=== PATIENT | male | born 1945 | race Caucasian/White ===

== ENCOUNTER 2019-07-24 12:04 | Inpatient (IN) | payer MEDICARE ==
[~2019-07-24] VITALS: Ht 188 cm; Wt 135.2 kg
[~2019-07-24 12:04] MED LIST: LISI-613 PO
[2019-07-24] MEDS ORDERED: ONDANSETRON HCL 4 MG/2 ML VIAL ONE (12:21)
[2019-07-24] MEDS ORDERED: FENTANYL CITRATE PF 50 MCG/1 ML 2ML VIAL ONE (12:22)
[2019-07-24 12:53] LABS: BASOPHILS % (AUTO) 0.9 % (0.0-5.0); EOSINOPHILS % (AUTO) 0.6 % (0.0-8.0); HEMATOCRIT 34.5 % (42-54); LYMPHOCYTES % (AUTO) 15.6 % (21.0-51.0); MEAN CORPUSCULAR HEMOGLOBIN 28.4 pg (27.0-33.0); MEAN CORPUSCULAR HGB CONC 31.9 g/dL (32.0-36.0); MEAN CORPUSCULAR VOLUME 89.1 fL (79-99); MONOCYTES % (AUTO) 6.5 % (3.0-13.0); NEUTROPHILS % (AUTO) 75.3 % (40.0-77.0); PLATELET COUNT (AUTO) 218 K/uL (130-400); RED BLOOD CELL COUNT(AUTO) 3.87 MIL/uL (4.50-6.20); RED CELL DISTRIBUTION WIDTH 13.3 % (11.0-15.5); WHITE BLOOD COUNT (AUTO) 13.8 K/uL (4.8-10.8)
[2019-07-24 13:07] LABS: CREATININE 1.9 mg/dL (0.5-1.5); POTASSIUM 5.8 mmol/L (3.5-5.1)
[2019-07-24 13:08] LABS: INR 1.03 (0.85-1.15); PARTIAL THROMBOPLASTIN TIME 23.9 SEC (26.3-35.5); PROTHROMBIN TIME 11.1 SEC (9.6-11.6)
[2019-07-24 13:12] LABS: ALBUMIN 3.9 g/dL (3.5-5.0); BILIRUBIN,TOTAL 0.6 mg/dL (0.2-1.0); TOTAL PROTEIN, SERUM 7.2 g/dL (6.0-8.3)
[2019-07-24] MEDS ORDERED: HYDROMORPHONE 1 MG/1 ML AMP ONE (13:42)
[2019-07-24] MEDS: SODIUM CHLORIDE 0.9% 1000ML 1,000 ML IV SCH ×2 (16:56→23:08)
[2019-07-24] MEDS ORDERED: SODIUM POLYSTYRENE SULFONATE 15 GM/60 ML ML RC SCH (17:00)
[2019-07-24] MEDS ORDERED: ONDANSETRON HCL 4 MG/2 ML VIAL IV PRN (17:00)
[2019-07-24] MEDS ORDERED: ACETAMINOPHEN 325 MG TAB PO PRN (17:00)
[2019-07-24] MEDS ORDERED: NITROGLYCERIN 0.4 MG SL TAB SL PRN (17:00)
[2019-07-24] MEDS: CEFAZOLIN SODIUM 1 GM VIAL IVP SCH (17:00)
[2019-07-24] MEDS ORDERED: MORPHINE SULFATE 2 MG/ML 1ML SYG ONE ×2 (17:22→20:57)
[2019-07-24] MEDS ORDERED: SODIUM CHLORIDE 0.9% 100 ML IV ONE (17:51)
[2019-07-24] MEDS ORDERED: SODIUM POLYSTYRENE SULFONATE 15 GM/60 ML ML ONE (18:57)
[2019-07-24] MEDS ORDERED: FAMOTIDINE/PF 20 MG/2 ML VIAL IV SCH (21:00)
[2019-07-24] MEDS ORDERED: NALOXONE HCL 0.4 MG/1 ML ML IVP PRN (21:30)
[2019-07-24 22:35] VITALS: BP 95/47
[2019-07-24] MEDS: HYDROMORPHONE PCA 10 MG/50 ML 50 ML IV PRN (23:13)
[2019-07-24] MEDS ORDERED: LORA10TA60 PO (23:50)
--- NOTE | 2019-07-24 23:58 | NUR ---
NOTE APPLIED BUCKS TRACTION ON LLE. 10 LBS.
[2019-07-25] VITALS (7 sets, daily range): BP systolic 88–113; BP diastolic 44–52
[2019-07-25] MEDS: CEFAZOLIN SODIUM 1 GM VIAL IVP SCH ×2 (04:30→17:32)
[2019-07-25 04:38] LABS: BASOPHILS % (AUTO) 0.6 % (0.0-5.0); EOSINOPHILS % (AUTO) 0.5 % (0.0-8.0); HEMATOCRIT 31.4 % (42-54); LYMPHOCYTES % (AUTO) 15.4 % (21.0-51.0); MEAN CORPUSCULAR HEMOGLOBIN 28.7 pg (27.0-33.0); MEAN CORPUSCULAR HGB CONC 31.8 g/dL (32.0-36.0); MEAN CORPUSCULAR VOLUME 90.2 fL (79-99); MONOCYTES % (AUTO) 6.6 % (3.0-13.0); NEUTROPHILS % (AUTO) 76.3 % (40.0-77.0); PLATELET COUNT (AUTO) 192 K/uL (130-400); RED BLOOD CELL COUNT(AUTO) 3.48 MIL/uL (4.50-6.20); RED CELL DISTRIBUTION WIDTH 13.3 % (11.0-15.5); WHITE BLOOD COUNT (AUTO) 13.1 K/uL (4.8-10.8)
[2019-07-25 05:39] LABS: ALBUMIN 3.3 g/dL (3.5-5.0); BILIRUBIN,TOTAL 0.8 mg/dL (0.2-1.0); CREATININE 1.8 mg/dL (0.5-1.5); CRP QUANTITATIVE 20.9 mg/L (0.00-9.0); TOTAL PROTEIN, SERUM 6.3 g/dL (6.0-8.3)
[2019-07-25 05:43] LABS: POTASSIUM 6.2 mmol/L (3.5-5.1)
[2019-07-25 05:44] LABS: ERYTHROCYTE SEDIMENTATION RATE 38 MM/HR (0-20)
[2019-07-25] MEDS ORDERED: SODIUM POLYSTYRENE SULFONATE 15 GM/60 ML ML PO SCH (07:15)
[2019-07-25] MEDS ORDERED: GADODIAMIDE 10 MMOL/20 ML VIAL IV ONE (10:20)
--- NOTE | 2019-07-25 10:47 | NUR ---
PT DOWN FOR MRI LUMBAR, ORDERED BY DR FUENTES, PT UNABLE TO TOLERATE, DILAUDID GIVEN PRIOR TO EXAM, REFUSES MORPHINE, REFUSES TO TRY AGAIN, EXAM CANCELLED, DR FUENTES NOTIFIED WILL CONTINUE TO MONITOR
[2019-07-25 11:59] LABS: CREATININE 1.9 mg/dL (0.5-1.5); POTASSIUM 5.7 mmol/L (3.5-5.1)
[2019-07-25 12:04] LABS: ALBUMIN 3.4 g/dL (3.5-5.0); BILIRUBIN,TOTAL 0.8 mg/dL (0.2-1.0); TOTAL PROTEIN, SERUM 6.5 g/dL (6.0-8.3)
[2019-07-25] MEDS ORDERED: PAMIDRONATE DISODIUM IV SCH (13:00)
[2019-07-25] MEDS ORDERED: SODIUM CHLORIDE 0.9% IV SCH (13:00)
[2019-07-25] MEDS: SODIUM CHLORIDE 0.9% 1000ML 1,000 ML IV SCH (13:08)
[2019-07-25] MEDS: FAMOTIDINE/PF 20 MG/2 ML VIAL IV SCH (13:08)
[2019-07-25] MEDS: ENOXAPARIN SODIUM 30 MG/0.3 ML SQ SCH (13:08)
--- NOTE | 2019-07-25 13:27 | NUR ---
ELLEN BHAKTA SAID THAT FAMILY DAUGHTER LAURA BARRY HAD CALLED AND SAID THAT THEY WANTED DAD TO BE HOSPICE. ASKED ABOUT SPOUSE. SAID MOM HAS BEEN 6 YEARS. ASKED PRIMARY IF HE THOUGH HOSPICE WOULD BE APPROPRIATE BEFORE I CALL SAID WANTED TO WAIT FOR DR. CANCINO RECOMMENDATIONS. SINCE THERE COULD BE SOMETHING ON THE KIDNEY. LAURA BARRY DAUGHTER [phone] OR [phone]. WILL WAIT FOR DR. CANCINO REC'S. Addendum: 07/25/19 at 1332 by JAVAN THOMAS RN Amended: Links added.
[2019-07-25 23:51] LABS: APPEARANCE,URINE Clear (CLEAR); BILIRUBIN,URINE Negative (NEGATIVE); COLOR,URINE Yellow (YELLOW); GLUCOSE, URINE (UA) Negative (NEGATIVE); KETONES,URINE Negative (NEGATIVE); LEUKOCYTE ESTERASE ,URINE Negative (NEGATIVE); NITRATE,URINE Negative (NEGATIVE); OCCULT BLOOD,URINE Large (NEGATIVE); PH,URINE 5.5 (5.0-8.0); PROTEIN,URINE Negative (NEGATIVE)
[2019-07-25 23:56] LABS: CREATININE,URINE RANDOM 97 mg/dL (30-135); PROTEIN,URINE RANDOM 14.9 mg/dL (0-11.9)
[2019-07-26] VITALS (30 sets, daily range): BP systolic 96–122; BP diastolic 46–109
[2019-07-26 00:02] LABS: BACTERIA,URINE None Seen /HPF (None Seen); WBC,URINE None Seen /HPF (0-1)
[2019-07-26 04:57] LABS: BASOPHILS % (AUTO) 0.4 % (0.0-5.0); EOSINOPHILS % (AUTO) 0.6 % (0.0-8.0); HEMATOCRIT 29.4 % (42-54); LYMPHOCYTES % (AUTO) 13.4 % (21.0-51.0); MEAN CORPUSCULAR HEMOGLOBIN 28.4 pg (27.0-33.0); MEAN CORPUSCULAR VOLUME 88.8 fL (79-99); MONOCYTES % (AUTO) 7.2 % (3.0-13.0); NEUTROPHILS % (AUTO) 77.8 % (40.0-77.0); PLATELET COUNT (AUTO) 165 K/uL (130-400); RED BLOOD CELL COUNT(AUTO) 3.31 MIL/uL (4.50-6.20); RED CELL DISTRIBUTION WIDTH 13.4 % (11.0-15.5); WHITE BLOOD COUNT (AUTO) 11.7 K/uL (4.8-10.8)
[2019-07-26 05:15] LABS: ALBUMIN 2.9 g/dL (3.5-5.0); BILIRUBIN,TOTAL 0.8 mg/dL (0.2-1.0); CREATININE 1.6 mg/dL (0.5-1.5); POTASSIUM 4.9 mmol/L (3.5-5.1); TOTAL PROTEIN, SERUM 6.1 g/dL (6.0-8.3)
[2019-07-26 05:22] LABS: % IRON SATURATION 10.6 % (30-44)
[2019-07-26] MEDS: CEFAZOLIN SODIUM 1 GM VIAL IVP SCH ×2 (05:50→07:18)
[2019-07-26] MEDS: SODIUM CHLORIDE 0.9% 1000ML 1,000 ML IV SCH ×3 (05:51→12:34)
--- NOTE | 2019-07-26 06:34 | NUR ---
TO OR SURGERY STAFF HERE TO TRANSPORT PATIENT TO OR FOR BIOPSY.
[2019-07-26] MEDS ORDERED: FENTANYL CITRATE PF 50 MCG/1 ML 2ML VIAL ONE (07:08)
[2019-07-26] MEDS ORDERED: FENTANYL CITRATE PF 50 MCG/1 ML 2ML VIAL IVP SCH (07:30)
[2019-07-26] MEDS ORDERED: KETAMINE 50MG/ML SYRINGE 50 MG/ML DISP.SYRIN IV ONE (08:27)
[2019-07-26] MEDS ORDERED: LIDOCAINE PF 2% 5ML ABBOJECT ONE (08:29)
[2019-07-26] MEDS ORDERED: PROPOFOL 10 MG/ML 20ML VIAL IV ONE (08:29)
[2019-07-26] MEDS ORDERED: SUCCINYLCHOLINE CHLORIDE 20 MG/ML 10 ML VIAL ONE (08:29)
[2019-07-26] MEDS ORDERED: ROCURONIUM 10MG/1ML SYR 10 MG/ML ML ONE (08:29)
[2019-07-26] MEDS: ENOXAPARIN SODIUM 30 MG/0.3 ML SQ SCH (08:34)
[2019-07-26] MEDS: FAMOTIDINE/PF 20 MG/2 ML VIAL IV SCH (08:34)
[2019-07-26] MEDS ORDERED: CEFAZOLIN SODIUM 1 GM VIAL ONE ×2 (08:41→09:02)
[2019-07-26] MEDS ORDERED: ONDANSETRON HCL 4 MG/2 ML VIAL ONE (08:57)
[2019-07-26] MEDS ORDERED: COMPOUND IV MISC 1 EACH IVSOLN MISC PRN (09:00)
[2019-07-26] MEDS ORDERED: ALBUMIN (HUMAN) 5% 250 ML IV ONE ×2 (10:09→10:20)
[2019-07-26 10:35] LABS: HEMATOCRIT 27.2 % (42-54)
[2019-07-26] MEDS ORDERED: LIDOCAINE HCL-MPF 1% 2ML VIAL IV PRN (11:15)
[2019-07-26] MEDS ORDERED: POTASSIUM CHLORIDE 20MEQ/100ML 100 ML IV PRN (11:15)
[2019-07-26] MEDS ORDERED: POTASSIUM CHLORIDE 20 MEQ ERTAB PO PRN (11:15)
[2019-07-26] MEDS ORDERED: DIPHENHYDRAMINE HCL 25 MG CAPSULE PO PRN (11:15)
[2019-07-26] MEDS ORDERED: FERROUS FUMARATE 324 MG TABLET PO PRN (11:15)
[2019-07-26] MEDS ORDERED: POTASSIUM CHLORIDE 10% ELIXIR 20 MEQ/15 ML UDCUP PO PRN (11:15)
[2019-07-26] MEDS ORDERED: MEPERIDINE-PF 25 MG/ML SYG ONE (11:31)
--- NOTE | 2019-07-26 12:24 | NUR ---
S/P BONE BIOPSY PATIENT RETURNED TO FLOOR VIA HOSPITAL BED S/P BONE BIOPSY. HE IS MOANING ANG GRIMACING THROUGH HALLWAY. ONCE IN ROOM HE HAS BEEN QUIET AND APPEARS COMFORTABLE. HIS DRESSING IS DRY AND INTACT. IV FLUIDS CONTINUE VIA LEFT FOREARM IV WITH NO REDNESS OR SWELLING NOTED TO SITE. HE CONTINUES ON DILAUDID PENSION CONSULTANT. HE HAS BEEN REORIENTED TO ROOM AND USE OF CALL LIGHT. BED IS IN LOWEST POSITION AND LOCKED. POST OF V/S HAVE BEEN INITIATED. WILL CONTINUE TO MONITOR.
[2019-07-26] MEDS: IRON SUCROSE COMPLEX 100 MG in SODIUM CHLORIDE 0.9% 50 ML IV SCH (12:33)
[2019-07-26 16:04] LABS: HEMATOCRIT 24.3 % (42-54)
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
[2019-07-26] MEDS: MORPHINE SULFATE 2 MG/ML 1ML SYG IVP PRN (17:59)
[2019-07-27] VITALS: BP 117/58
[2019-07-27 04:58] VITALS: BP 114/81
[2019-07-27 05:14] LABS: BASOPHILS % (AUTO) 0.3 % (0.0-5.0); EOSINOPHILS % (AUTO) 0.2 % (0.0-8.0); HEMATOCRIT 24.2 % (42-54); LYMPHOCYTES % (AUTO) 11.7 % (21.0-51.0); MEAN CORPUSCULAR HEMOGLOBIN 28.4 pg (27.0-33.0); MEAN CORPUSCULAR HGB CONC 31.8 g/dL (32.0-36.0); MEAN CORPUSCULAR VOLUME 89.3 fL (79-99); NEUTROPHILS % (AUTO) 80.3 % (40.0-77.0); PLATELET COUNT (AUTO) 160 K/uL (130-400); RED BLOOD CELL COUNT(AUTO) 2.71 MIL/uL (4.50-6.20); RED CELL DISTRIBUTION WIDTH 13.5 % (11.0-15.5); WHITE BLOOD COUNT (AUTO) 12.9 K/uL (4.8-10.8)
[2019-07-27] MEDS: CEFAZOLIN SODIUM 1 GM VIAL IVP SCH ×2 (05:18→16:26)
[2019-07-27 05:32] LABS: ALBUMIN 2.9 g/dL (3.5-5.0); BILIRUBIN,TOTAL 0.9 mg/dL (0.2-1.0); CREATININE 1.3 mg/dL (0.5-1.5); POTASSIUM 4.7 mmol/L (3.5-5.1); TOTAL PROTEIN, SERUM 5.9 g/dL (6.0-8.3)
[2019-07-27] MEDS: SODIUM CHLORIDE 0.9% 1000ML 1,000 ML IV SCH (07:10)
[2019-07-27 08:01] VITALS: BP 104/53
[2019-07-27] MEDS: IRON SUCROSE COMPLEX 100 MG in SODIUM CHLORIDE 0.9% 50 ML IV SCH (09:19)
[2019-07-27] MEDS: FAMOTIDINE/PF 20 MG/2 ML VIAL IV SCH (09:19)
[2019-07-27] MEDS: ENOXAPARIN SODIUM 30 MG/0.3 ML SQ SCH (09:20)
[2019-07-27 11:42] VITALS: BP 103/53
[2019-07-27] MEDS ORDERED: FUROSEMIDE 10 MG/ML 2ML VIAL IV SCH (13:00)
[2019-07-27 16:02] VITALS: BP 95/43
[2019-07-27 20:00] VITALS: BP 112/58
[2019-07-27] MEDS: HEPARIN SODIUM 5000UNIT/ML 1ML VIAL SQ SCH (22:22)
[2019-07-28] VITALS (7 sets, daily range): BP systolic 105–128; BP diastolic 53–68
[2019-07-28] MEDS: HYDROCODONE/ACETAMINOPHEN 5/325 MG TAB PO PRN (01:43)
--- NOTE | 2019-07-28 01:46 | NUR ---
DAUGHTER VOICE MESSAGE LEFT ON DAUGHTER'S (LAURA: [phone]) CELL PHONE REQUESTING THAT SHE RETURN OUR CALL--PT. AGITATED, COMBATIVE, THROWING OWN CELL PHONE THAT HIT THE NURSE AND USING VULGAR LANGUAGE. SECURITY HERE TALKING TO PATIENT.
[2019-07-28] MEDS ORDERED: LORAZEPAM 2 MG/ML 1 ML VIAL ONE (02:08)
[2019-07-28] MEDS ORDERED: LORAZEPAM 2 MG/ML 1 ML VIAL IVP ONE (02:15)
[2019-07-28] MEDS: CEFAZOLIN SODIUM 1 GM VIAL IVP SCH ×2 (04:26→17:39)
[2019-07-28 05:08] LABS: HEMATOCRIT 28.2 % (42-54); MEAN CORPUSCULAR HEMOGLOBIN 29.4 pg (27.0-33.0); MEAN CORPUSCULAR VOLUME 89.2 fL (79-99); PLATELET COUNT (AUTO) 165 K/uL (130-400); RED BLOOD CELL COUNT(AUTO) 3.16 MIL/uL (4.50-6.20); RED CELL DISTRIBUTION WIDTH 13.2 % (11.0-15.5); WHITE BLOOD COUNT (AUTO) 11.6 K/uL (4.8-10.8)
[2019-07-28 05:23] LABS: BAND NEUTROPHILS % (MANUAL) 2 % (0-2); EOSINOPHILS % (MANUAL) 1 % (1-6); LYMPHOCYTES % (MANUAL) 15 % (22-44); MAN.DIFF COMMENT-IMPRESSION MANUAL DIFFERENTIAL; MONOCYTES % (MANUAL) 8 % (2-9); PLATELET MORPHOLOGY COMMENT ADEQUATE; SEGMENTED NEUTROPHILS % 74 % (40-70)
[2019-07-28 05:26] LABS: CREATININE 1.1 mg/dL (0.5-1.5); PHOSPHORUS 2.9 mg/dL (2.5-4.9); POTASSIUM 4.4 mmol/L (3.5-5.1)
[2019-07-28] MEDS: FAMOTIDINE/PF 20 MG/2 ML VIAL IV SCH (08:57)
[2019-07-28] MEDS: IRON SUCROSE COMPLEX 100 MG in SODIUM CHLORIDE 0.9% 50 ML IV SCH (08:59)
[2019-07-28] MEDS: HEPARIN SODIUM 5000UNIT/ML 1ML VIAL SQ SCH ×2 (08:59→20:45)
--- NOTE | 2019-07-28 19:24 | NUR ---
PATIENT AWAKE, ALERT AND ORIENTED. HE SIGN THE CONSENT FOR THE PROCEDURE TOMORROW, STATES HE UNDERSTANDS THE RISKS AND WISHES TO CONTINUE WITH THE PLAN. PATIENT ALSO MENTIONED THAT HE WANTED TO BE DNR. I TOLD HIM THAT HE WILL NEED TO SIGN A SPECIFIC FORM. ETIENNE GRULLON AWARE.
[2019-07-28] MEDS: HYDROMORPHONE 1 MG/1 ML AMP IVP PRN ×2 (21:14→23:12)
[2019-07-29] MEDS: HYDROMORPHONE 1 MG/1 ML AMP IVP PRN ×4 (01:15→08:41)
[2019-07-29] MEDS: MORPHINE SULFATE 2 MG/ML 1ML SYG IVP PRN (02:28)
[2019-07-29 03:46] VITALS: BP 121/74
[2019-07-29] MEDS: CEFAZOLIN SODIUM 1 GM VIAL IVP SCH ×2 (04:40→17:18)
[2019-07-29 05:56] LABS: HEMATOCRIT 29.3 % (42-54); MEAN CORPUSCULAR HGB CONC 32.4 g/dL (32.0-36.0); MEAN CORPUSCULAR VOLUME 89.3 fL (79-99); RED BLOOD CELL COUNT(AUTO) 3.28 MIL/uL (4.50-6.20); RED CELL DISTRIBUTION WIDTH 13.9 % (11.0-15.5); WHITE BLOOD COUNT (AUTO) 9.4 K/uL (4.8-10.8)
[2019-07-29] MEDS: SODIUM CHLORIDE 0.9% 1000ML 1,000 ML IV SCH ×3 (06:08→23:51)
[2019-07-29 06:17] LABS: CREATININE 1.2 mg/dL (0.5-1.5); POTASSIUM 4.3 mmol/L (3.5-5.1)
[2019-07-29 08:00] VITALS: BP 121/62
[2019-07-29] MEDS: FAMOTIDINE/PF 20 MG/2 ML VIAL IV SCH (08:41)
[2019-07-29] MEDS: HYDROMORPHONE PCA 10 MG/50 ML 50 ML IV PRN (08:42)
[2019-07-29] MEDS: HEPARIN SODIUM 5000UNIT/ML 1ML VIAL SQ SCH ×2 (09:00→19:50)
[2019-07-29] MEDS: IRON SUCROSE COMPLEX 100 MG in SODIUM CHLORIDE 0.9% 50 ML IV SCH (09:44)
[2019-07-29 12:01] VITALS: BP 113/55
[2019-07-29] MEDS ORDERED: IOHEXOL 350 MG/ML 100ML INFUS..BTL IV ONE (13:46)
[2019-07-29 16:00] VITALS: BP 119/62
[2019-07-29 20:20] VITALS: BP 121/58
[2019-07-30 00:24] VITALS: BP 121/63
[2019-07-30 04:24] VITALS: BP 105/62
[2019-07-30] MEDS: CEFAZOLIN SODIUM 1 GM VIAL IVP SCH ×2 (04:45→16:30)
[2019-07-30 08:00] VITALS: BP 134/67
--- NOTE | 2019-07-30 08:10 | NUR ---
ORTHOPEDIC MD DR. FUENTES IN TO SEE PATIENT. NEW ORDERS RECEIVED AND CARRIED OUT.
[2019-07-30] MEDS: FAMOTIDINE/PF 20 MG/2 ML VIAL IV SCH (08:34)
[2019-07-30] MEDS: HEPARIN SODIUM 5000UNIT/ML 1ML VIAL SQ SCH ×3 (08:35→21:04)
[2019-07-30] MEDS: IRON SUCROSE COMPLEX 100 MG in SODIUM CHLORIDE 0.9% 50 ML IV SCH (08:36)
[2019-07-30] MEDS: SODIUM CHLORIDE 0.9% 1000ML 1,000 ML IV SCH (10:30)
[2019-07-30] MEDS ORDERED: LIDOCAINE HCL 1% MDV 50ML VIAL ONE (11:20)
[2019-07-30] MEDS ORDERED: HEPARIN SODIUM 1000UNIT/ML 10ML VIAL ONE (11:20)
[2019-07-30] MEDS ORDERED: FENTANYL CITRATE PF 50 MCG/1 ML 2ML VIAL ONE (11:20)
[2019-07-30] MEDS ORDERED: MIDAZOLAM HCL 1 MG/ML 2ML VIAL ONE (11:20)
[2019-07-30] MEDS ORDERED: IODIXANOL 320 MG/ML 100 ML VIAL ONE (11:21)
--- NOTE | 2019-07-30 11:49 | NUR ---
DC PLAN PATIENT PENDING SURGERY BY DR. FUENTES AND THEN POSSIBLE CHEMO BY DR. CANCINO. ONCE PATIENT HAS SURGERY WILL HAVE PT EVAL. DEPENDING ON PT EVAL POSSIBLE SNF VS HOME. Addendum: 07/30/19 at 1151 by JAVAN THOMAS RN CM Amended: Links added.
--- NOTE | 2019-07-30 11:50 | NUR ---
TO PHOTOGRAPHIC ENGINEER PATIENT TRANSFERRED TO PHOTOGRAPHIC ENGINEER FOR TUMOR EMBOLIZATION BY INTERVENTIONAL RADIOLOGIST. HE IS IN STABLE CONDITION. [address] LBS[address] KAUFMAN'S TRACTION IN PLACE.
[2019-07-30 11:51] VITALS: BP 144/68
--- NOTE | 2019-07-30 12:53 | NUR ---
BACK FROM ENDOCRINOLOGY NURSE PATIENT WAS RETURNED FROM ENDOCRINOLOGY NURSE WITHOUT PROCEDURE BEING DONE D/T TOO MUCH PAIN. THE RADIOLOGIST HAS SPOKEN WITH DR. FUENTES REGARDING THIS AND THEY WILL POSTPONE PROCEDURE UNTIL TOMORROW WHEN THEY CAN USE GENERAL ANESTHESIA.
--- NOTE | 2019-07-30 15:53 | NUR ---
DC PLAN DAUGHTER CALLED SAID PATIENT HAD BEEN CONFUSED. PLAN TO GO TO COMFORT HOME ON DISCHARGE NOT HOSPICE. NAME OF HOME IS [facility]. [phone]. NOT SURE ON NAME OF PERSON TO CONTACT. SAID THAT PLAN IS STILL FOR SURGERY WITH DR. FUENTES. CALLED TO LET NURSE KNOW NO ANSWER. CM WILL CONTINUE TO FOLLOW. Addendum: 07/30/19 at 1555 by JAVAN THOMAS RN CM Amended: Links added.
[2019-07-30 16:00] VITALS: BP 125/62
[2019-07-30 19:00] VITALS: BP 118/63
[2019-07-31] VITALS (25 sets, daily range): BP systolic 99–122; BP diastolic 46–72
[2019-07-31] MEDS: HYDROMORPHONE PCA 10 MG/50 ML 50 ML IV PRN ×3 (01:30→06:35)
[2019-07-31] MEDS: HYDROCODONE/ACETAMINOPHEN 5/325 MG TAB PO PRN ×2 (02:48→21:11)
[2019-07-31] MEDS: SODIUM CHLORIDE 0.9% 1000ML 1,000 ML IV SCH ×3 (02:49→16:15)
[2019-07-31] MEDS: CEFAZOLIN SODIUM 1 GM VIAL IVP SCH ×2 (05:01→17:26)
[2019-07-31] MEDS: HEPARIN SODIUM 5000UNIT/ML 1ML VIAL SQ SCH ×2 (09:00→21:12)
[2019-07-31] MEDS: FAMOTIDINE/PF 20 MG/2 ML VIAL IV SCH (09:51)
[2019-07-31] MEDS ORDERED: NEOSTIGMINE 5MG/5ML SYR IV ONE (12:08)
[2019-07-31] MEDS ORDERED: MIDAZOLAM HCL 1 MG/ML 2ML VIAL ONE (12:08)
[2019-07-31] MEDS ORDERED: PROPOFOL 10 MG/ML 20ML VIAL IV ONE (12:08)
[2019-07-31] MEDS ORDERED: GLYCOPYRROLATE 1 MG/5 ML SYRINGE ONE (12:08)
[2019-07-31] MEDS ORDERED: LIDOCAINE PF 2% 5ML ABBOJECT ONE (12:08)
[2019-07-31] MEDS ORDERED: DEXAMETHASONE SOD PHOSPHATE 10MG/ML 1ML VIAL ONE (12:08)
[2019-07-31] MEDS ORDERED: ONDANSETRON HCL 4 MG/2 ML VIAL ONE (12:09)
[2019-07-31] MEDS ORDERED: ROCURONIUM 10MG/1ML SYR 10 MG/ML ML ONE (12:09)
[2019-07-31] MEDS ORDERED: EPHEDRINE SULFATE 50 MG/ML AMPULE ONE (12:11)
[2019-07-31] MEDS ORDERED: NALOXONE HCL 0.4 MG/1 ML ML ONE (12:42)
[2019-07-31] MEDS ORDERED: FENTANYL CITRATE PF 50 MCG/1 ML 5ML AMP IV ONE (13:27)
[2019-07-31] MEDS ORDERED: IODIXANOL 320 MG/ML 100 ML VIAL ONE ×3 (14:34→15:17)
[2019-07-31] MEDS ORDERED: LIDOCAINE HCL 1% MDV 50ML VIAL ONE (14:52)
[2019-07-31] MEDS: IRON SUCROSE COMPLEX 100 MG in SODIUM CHLORIDE 0.9% 50 ML IV SCH (17:27)
[2019-07-31] MEDS: HYDROMORPHONE 1 MG/1 ML AMP IVP PRN (19:24)
[2019-08-01] VITALS (7 sets, daily range): BP systolic 92–110; BP diastolic 48–62
[2019-08-01] MEDS: CEFAZOLIN SODIUM 1 GM VIAL IVP SCH ×2 (04:38→17:17)
[2019-08-01] MEDS: HYDROMORPHONE 1 MG/1 ML AMP IVP PRN (04:38)
[2019-08-01] MEDS: HYDROCODONE/ACETAMINOPHEN 5/325 MG TAB PO PRN ×2 (05:52→16:32)
[2019-08-01] MEDS: SODIUM CHLORIDE 0.9% 1000ML 1,000 ML IV SCH ×2 (05:53→12:17)
[2019-08-01 05:57] LABS: BASOPHILS % (AUTO) 0.1 % (0.0-5.0); HEMATOCRIT 28.9 % (42-54); LYMPHOCYTES % (AUTO) 8.4 % (21.0-51.0); MEAN CORPUSCULAR HEMOGLOBIN 28.7 pg (27.0-33.0); MEAN CORPUSCULAR HGB CONC 30.8 g/dL (32.0-36.0); MEAN CORPUSCULAR VOLUME 93.2 fL (79-99); MONOCYTES % (AUTO) 6.4 % (3.0-13.0); NEUTROPHILS % (AUTO) 84.7 % (40.0-77.0); PLATELET COUNT (AUTO) 184 K/uL (130-400); RED CELL DISTRIBUTION WIDTH 14.1 % (11.0-15.5); WHITE BLOOD COUNT (AUTO) 6.8 K/uL (4.8-10.8)
[2019-08-01 06:14] LABS: CREATININE 1.1 mg/dL (0.5-1.5)
[2019-08-01] MEDS: FAMOTIDINE/PF 20 MG/2 ML VIAL IV SCH (09:14)
[2019-08-01] MEDS: IRON SUCROSE COMPLEX 100 MG in SODIUM CHLORIDE 0.9% 50 ML IV SCH (09:14)
[2019-08-01] MEDS ORDERED: MIDODRINE HCL 5 MG TABLET PO SCH (09:15)
[2019-08-01] MEDS: HEPARIN SODIUM 5000UNIT/ML 1ML VIAL SQ SCH ×2 (09:22→20:46)
[2019-08-01] MEDS: LACTULOSE 20 GM/30 ML UDCUP PO PRN (10:04)
[2019-08-01] MEDS ORDERED: SENNOSIDES 8.6 MG TABLET PO PRN (14:15)
[2019-08-01] MEDS: MIDODRINE HCL 5 MG TABLET PO SCH ×2 (14:37→20:46)
--- NOTE | 2019-08-01 16:28 | NUR ---
RDSCREEN - LOS X 8 Pt admitted s/p fall, left hip fracture. Pt with metastatic Renal Cell carcinoma, as per EMR. Pt Heart healthy Diet order held pending surgical procedure. Pt with intermittent NPO status since admit. No reported weight loss. S/p embolization procedure, as per EMR. LBM 08/01/19. Recommend resume Heart Healthy diet order post procedure, when medically feasible. Recommend add Ensure QD post procedure, when medically feasible. RD to continue to monitor. Please notify as additional nutrition concerns arise. Thank you. Addendum: 08/01/19 at [address] Amended: Links added.
[2019-08-01] MEDS ORDERED: CEFAZOLIN SODIUM 1 GM VIAL IVP PRN (17:45)
--- NOTE | 2019-08-01 19:00 | NUR ---
MD ANNE CEJA VISITED WITH PATIENT. POC DISCUSSED. NEW ORDERS RECEIVED AND CARRIED OUT. PATIENT AWARE. Addendum: 08/02/19 at 0148 by ALEXANDRA ALONSO RN RN Amended: Links added.
--- NOTE | 2019-08-01 19:18 | NUR ---
DR. ALFREDO LEAL HERE TO SEE PATIENT. SPOKE TO PATIENT AND HIS DAUGHTER IN REGARDS TO PLAN FOR SURGERY TOMORROW.
[2019-08-02] VITALS (25 sets, daily range): BP systolic 92–123; BP diastolic 43–61
[2019-08-02] MEDS: CEFAZOLIN SODIUM 1 GM VIAL IVP SCH ×2 (03:55→17:00)
[2019-08-02] MEDS: SODIUM CHLORIDE 0.9% 1000ML 1,000 ML IV SCH ×2 (03:57→21:13)
[2019-08-02 04:48] LABS: BASOPHILS % (AUTO) 0.4 % (0.0-5.0); EOSINOPHILS % (AUTO) 0.4 % (0.0-8.0); HEMATOCRIT 30.3 % (42-54); LYMPHOCYTES % (AUTO) 15.7 % (21.0-51.0); MEAN CORPUSCULAR VOLUME 93.5 fL (79-99); MONOCYTES % (AUTO) 7.2 % (3.0-13.0); NEUTROPHILS % (AUTO) 75.7 % (40.0-77.0); PLATELET COUNT (AUTO) 207 K/uL (130-400); RED BLOOD CELL COUNT(AUTO) 3.24 MIL/uL (4.50-6.20); RED CELL DISTRIBUTION WIDTH 14.3 % (11.0-15.5); WHITE BLOOD COUNT (AUTO) 7.8 K/uL (4.8-10.8)
[2019-08-02 05:03] LABS: ALBUMIN 2.3 g/dL (3.5-5.0); BILIRUBIN,TOTAL 0.9 mg/dL (0.2-1.0); POTASSIUM 4.2 mmol/L (3.5-5.1); TOTAL PROTEIN, SERUM 5.5 g/dL (6.0-8.3)
[2019-08-02] MEDS: HYDROMORPHONE 1 MG/1 ML AMP IVP PRN (07:36)
[2019-08-02] MEDS: IRON SUCROSE COMPLEX 100 MG in SODIUM CHLORIDE 0.9% 50 ML IV SCH (09:00)
[2019-08-02] MEDS: DOCUSATE SODIUM 100 MG CAP PO SCH (09:00)
[2019-08-02] MEDS: MIDODRINE HCL 5 MG TABLET PO SCH ×3 (09:12→21:12)
[2019-08-02] MEDS: FAMOTIDINE/PF 20 MG/2 ML VIAL IV SCH (09:12)
[2019-08-02] MEDS ORDERED: ROPIVACAINE 0.5% 5MG/ML 30ML IJ ONE (10:31)
[2019-08-02] MEDS ORDERED: SUCCINYLCHOLINE CHLORIDE 20 MG/ML 10 ML VIAL ONE (10:31)
[2019-08-02] MEDS ORDERED: FENTANYL CITRATE PF 50 MCG/1 ML 2ML VIAL ONE ×2 (10:34→17:13)
[2019-08-02] MEDS ORDERED: PROPOFOL 10 MG/ML 20ML VIAL IV ONE (10:34)
[2019-08-02] MEDS ORDERED: LIDOCAINE PF 2% 5ML ABBOJECT ONE (10:34)
[2019-08-02] MEDS ORDERED: ROCURONIUM 10MG/1ML SYR 10 MG/ML ML ONE ×3 (10:34→15:28)
[2019-08-02] MEDS ORDERED: CEFAZOLIN SODIUM 1 GM VIAL ONE ×3 (11:24→17:02)
[2019-08-02] MEDS: HYDROMORPHONE PCA 10 MG/50 ML 50 ML IV PRN (11:46)
--- NOTE | 2019-08-02 11:46 | NUR ---
I RECEIVED A CALL FROM SURGERY HOLDING AREA THAT PT'S SYSTEMS ARCHITECTURE ANALYST HAS RUN OUT AND THAT THEY NEED A REFILL; I HAVE GONE DOWN TO SURGERY AND REFILLED THE SYSTEMS ARCHITECTURE ANALYST AND HAD JAZZ A WITNESS.
[2019-08-02] MEDS ORDERED: EPHEDRINE SULFATE 50 MG/ML AMPULE ONE ×2 (12:14→17:31)
[2019-08-02] MEDS ORDERED: PHENYLEPHRINE HCL 10 MG/ML 1ML VIAL IV ONE (14:34)
[2019-08-02] MEDS ORDERED: GLYCOPYRROLATE 1 MG/5 ML SYRINGE ONE (16:35)
[2019-08-02] MEDS ORDERED: NEOSTIGMINE 5MG/5ML SYR IV ONE (16:35)
[2019-08-02] MEDS: CEFAZOLIN SODIUM 1 GM VIAL ONE ×2 (17:00→17:40)
[2019-08-02] MEDS ORDERED: ONDANSETRON HCL 4 MG/2 ML VIAL ONE (17:08)
[2019-08-02] MEDS ORDERED: SODIUM CHLORIDE 0.9% 1000ML 1,000 ML IV SCH (17:42)
[2019-08-02] MEDS ORDERED: POTASSIUM CHLORIDE 10% ELIXIR 20 MEQ/15 ML UDCUP PO PRN (17:45)
[2019-08-02] MEDS ORDERED: LIDOCAINE HCL-MPF 1% 2ML VIAL IV PRN (17:45)
[2019-08-02] MEDS: ACETAMINOPHEN EXTRA STRENGTH 500 MG TABLET PO SCH ×2 (17:45→21:13)
[2019-08-02] MEDS ORDERED: POTASSIUM CHLORIDE 20MEQ/100ML 100 ML IV PRN (17:45)
[2019-08-02] MEDS ORDERED: POTASSIUM CHLORIDE 20 MEQ ERTAB PO PRN (17:45)
[2019-08-02] MEDS ORDERED: MEPERIDINE-PF 25 MG/ML SYG ONE ×2 (18:04→18:15)
--- NOTE | 2019-08-02 18:50 | NUR ---
RECEIVED PT POST OP, HE IS MOANING AT TIMES SLIGHTLY BUT THEN FALLS BACK TO SLEEP; I HAVE CHECKED TOOL AND DIE REPAIR AND DRESSING CDI WITH HV DRAIN IN PLACE
--- NOTE | 2019-08-02 23:29 | NUR ---
Pt Avg Ins Vol is 1750 ML. Pt achieved 2000 ML. After 3 breath attempts he refused to continue due to pain. Addendum: 08/02/19 at 2331 by SMITA [address]OWER RT Amended: Links added.
[2019-08-03 00:35] VITALS: BP 104/50
[2019-08-03 04:00] VITALS: BP 107/49
[2019-08-03] MEDS: SODIUM CHLORIDE 0.9% 1000ML 1,000 ML IV SCH ×2 (04:38→14:15)
[2019-08-03] MEDS: CEFAZOLIN SODIUM 1 GM VIAL IVP SCH (04:39)
[2019-08-03 05:23] LABS: HEMATOCRIT 25.6 % (42-54); MEAN CORPUSCULAR HEMOGLOBIN 28.9 pg (27.0-33.0); MEAN CORPUSCULAR VOLUME 90.1 fL (79-99); NUCLEATED RED BLOOD CELLS 0.2 % (0.0-0.19); RED BLOOD CELL COUNT(AUTO) 2.84 MIL/uL (4.50-6.20); RED CELL DISTRIBUTION WIDTH 14.8 % (11.0-15.5); WHITE BLOOD COUNT (AUTO) 11.1 K/uL (4.8-10.8)
[2019-08-03 05:38] LABS: POTASSIUM 4.9 mmol/L (3.5-5.1)
[2019-08-03 06:59] LABS: CREATININE 1.2 mg/dL (0.5-1.5)
[2019-08-03 08:00] VITALS: BP 122/49
[2019-08-03] MEDS: ACETAMINOPHEN EXTRA STRENGTH 500 MG TABLET PO SCH ×2 (10:11→18:33)
[2019-08-03] MEDS: FAMOTIDINE/PF 20 MG/2 ML VIAL IV SCH (10:11)
[2019-08-03] MEDS: DOCUSATE SODIUM 100 MG CAP PO SCH (10:11)
[2019-08-03] MEDS: MIDODRINE HCL 5 MG TABLET PO SCH ×3 (10:12→21:07)
[2019-08-03] MEDS: APIXABAN 2.5 MG TABLET PO SCH ×2 (10:12→21:07)
[2019-08-03] MEDS: IRON SUCROSE COMPLEX 100 MG in SODIUM CHLORIDE 0.9% 50 ML IV SCH (10:14)
[2019-08-03 11:00] VITALS: BP 114/50
[2019-08-03] MEDS: HYDROCODONE/ACETAMINOPHEN 5/325 MG TAB PO PRN (12:02)
--- NOTE | 2019-08-03 16:21 | NUR ---
CM NOTE spoke to LAURA DAUGHTER [phone], spoke to her regarding poss snf for rehab, states that her preference is that pt go to [facility]. [phone]. she states this facility is an assisted living and has a PT department, informed that this cm nbt familiar with this home, and have tried to call it but only voicemessage this weekend. cm tocontinue to followup with this facility and for PT and MD recommendations. she verbalizes understanding.
[2019-08-03 17:16] VITALS: BP 120/57
[2019-08-03 20:16] VITALS: BP 137/63
[2019-08-03] MEDS: HYDROMORPHONE PCA 10 MG/50 ML 50 ML IV PRN (21:08)
[2019-08-04] MEDS: SODIUM CHLORIDE 0.9% 1000ML 1,000 ML IV SCH ×3 (01:00→20:57)
[2019-08-04] MEDS: HYDROCODONE/ACETAMINOPHEN 5/325 MG TAB PO PRN ×2 (01:01→05:14)
[2019-08-04] MEDS: ACETAMINOPHEN EXTRA STRENGTH 500 MG TABLET PO SCH ×3 (01:45→18:41)
[2019-08-04] MEDS ORDERED: LORAZEPAM 2 MG TABLET PO PRN (06:00)
[2019-08-04 08:00] VITALS: BP 115/59
[2019-08-04] MEDS: FAMOTIDINE/PF 20 MG/2 ML VIAL IV SCH (08:04)
[2019-08-04] MEDS: HYDROMORPHONE 1 MG/1 ML AMP IVP PRN (08:05)
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
[2019-08-04 08:57] LABS: BASOPHILS % (AUTO) 0.2 % (0.0-5.0); EOSINOPHILS % (AUTO) 0.4 % (0.0-8.0); LYMPHOCYTES % (AUTO) 7.9 % (21.0-51.0); MEAN CORPUSCULAR HEMOGLOBIN 29.2 pg (27.0-33.0); MEAN CORPUSCULAR HGB CONC 32.5 g/dL (32.0-36.0); MEAN CORPUSCULAR VOLUME 89.9 fL (79-99); MONOCYTES % (AUTO) 5.3 % (3.0-13.0); NEUTROPHILS % (AUTO) 84.4 % (40.0-77.0); NUCLEATED RED BLOOD CELLS 0.3 % (0.0-0.19); PLATELET COUNT (AUTO) 170 K/uL (130-400); RED BLOOD CELL COUNT(AUTO) 2.67 MIL/uL (4.50-6.20); RED CELL DISTRIBUTION WIDTH 15.5 % (11.0-15.5); WHITE BLOOD COUNT (AUTO) 12.6 K/uL (4.8-10.8)
--- NOTE | 2019-08-04 09:00 | NUR ---
cm note spoke to dr thorne regarding dc planning informed that daughter does not wish snf due to wishes to see him and spend time with him. and that at snf will not be able to. states if family prefers [facility] comfort home, options for hh, vs hospice, but dr polanco would need to advise, he has discussed this issue with dr polanco in the past. also spoke to dr Juan rosado, states she will discuss with dr Polanco and let cm know and then will discuss with pt and family.
[2019-08-04 09:12] LABS: CREATININE 0.9 mg/dL (0.5-1.5); POTASSIUM 4.1 mmol/L (3.5-5.1)
[2019-08-04] MEDS: DOCUSATE SODIUM 100 MG CAP PO SCH (10:21)
[2019-08-04] MEDS: IRON SUCROSE COMPLEX 100 MG in SODIUM CHLORIDE 0.9% 50 ML IV SCH (10:21)
[2019-08-04] MEDS: APIXABAN 2.5 MG TABLET PO SCH ×2 (10:21→20:57)
[2019-08-04] MEDS: MIDODRINE HCL 5 MG TABLET PO SCH ×3 (10:24→20:57)
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
[2019-08-04 12:00] VITALS: BP 115/55
[2019-08-04] MEDS: CALCIUM CARBONATE 500 MG TABLET PO PRN (13:17)
[2019-08-04] MEDS ORDERED: SODIUM CHLORIDE 0.9% 250 ML IV ONE (13:42)
[2019-08-04 15:58] VITALS: BP 109/51
[2019-08-04 19:00] VITALS: BP 117/62
[2019-08-04] MEDS: MIRTAZAPINE 15 MG TABLET PO SCH (20:57)
[2019-08-04] MEDS: DULOXETINE HCL 30 MG CAP PO SCH (20:57)
[2019-08-04 23:49] VITALS: BP 136/70
[2019-08-05 04:00] VITALS: BP 120/57
[2019-08-05] MEDS: ACETAMINOPHEN EXTRA STRENGTH 500 MG TABLET PO SCH ×3 (04:54→17:17)
[2019-08-05] MEDS: SODIUM CHLORIDE 0.9% 1000ML 1,000 ML IV SCH ×2 (04:55→16:16)
[2019-08-05 05:11] LABS: BASOPHILS % (AUTO) 0.2 % (0.0-5.0); EOSINOPHILS % (AUTO) 1.2 % (0.0-8.0); HEMATOCRIT 25.9 % (42-54); LYMPHOCYTES % (AUTO) 11.3 % (21.0-51.0); MEAN CORPUSCULAR HEMOGLOBIN 29.1 pg (27.0-33.0); MEAN CORPUSCULAR VOLUME 90.9 fL (79-99); MONOCYTES % (AUTO) 5.9 % (3.0-13.0); NEUTROPHILS % (AUTO) 79.7 % (40.0-77.0); NUCLEATED RED BLOOD CELLS 0.2 % (0.0-0.19); PLATELET COUNT (AUTO) 168 K/uL (130-400); RED BLOOD CELL COUNT(AUTO) 2.85 MIL/uL (4.50-6.20); RED CELL DISTRIBUTION WIDTH 16.2 % (11.0-15.5); WHITE BLOOD COUNT (AUTO) 12.3 K/uL (4.8-10.8)
[2019-08-05 05:29] LABS: CREATININE 0.8 mg/dL (0.5-1.5); POTASSIUM 4.1 mmol/L (3.5-5.1)
[2019-08-05 08:00] VITALS: BP 126/65
[2019-08-05] MEDS: DULOXETINE HCL 30 MG CAP PO SCH ×2 (09:03→21:44)
[2019-08-05] MEDS: MIDODRINE HCL 5 MG TABLET PO SCH ×3 (09:03→21:44)
[2019-08-05] MEDS: APIXABAN 2.5 MG TABLET PO SCH ×2 (09:03→21:44)
[2019-08-05] MEDS: FAMOTIDINE/PF 20 MG/2 ML VIAL IV SCH (09:03)
[2019-08-05] MEDS: DOCUSATE SODIUM 100 MG CAP PO SCH (09:04)
--- NOTE | 2019-08-05 09:16 | NUR ---
MD ROUNDS DR FUENTES VISITED WITH PATIENT. POC DISCUSSED. ORDERS TO START THE TRANSITION FROM DILAUDID HYDROGENATION STILL OPERATOR TO PO PAIN MEDICATIONS.
[2019-08-05] MEDS ORDERED: TRAMADOL HCL 50 MG TABLET PO PRN (09:45)
[2019-08-05] MEDS ORDERED: OXYCODONE HCL 5 MG TAB PO PRN (09:45)
--- NOTE | 2019-08-05 11:22 | NUR ---
[facility]ER. NO ANSWERING MACHINE. CM WILL CONTINUE TO TRY. COULD BE DUE TO HOLIDAY. PATIENT STILL ON PILEDRIVER CARPENTER PAIN PUMP AT THIS TIME. Addendum: 08/05/19 at 1124 by JAVAN THOMAS RN CM Amended: Links added.
[2019-08-05 11:44] VITALS: BP 146/72
[2019-08-05] MEDS: HYDROMORPHONE PCA 10 MG/50 ML 50 ML IV PRN (13:28)
[2019-08-05 16:00] VITALS: BP 131/73
[2019-08-05] MEDS ORDERED: BISACODYL 10 MG SUPP.RECT RC PRN (17:45)
[2019-08-05 21:39] VITALS: BP 124/65
[2019-08-05] MEDS: MIRTAZAPINE 15 MG TABLET PO SCH (21:44)
[2019-08-05 23:39] VITALS: BP 139/68
[2019-08-06] MEDS: ACETAMINOPHEN EXTRA STRENGTH 500 MG TABLET PO SCH ×3 (01:45→17:16)
[2019-08-06 04:05] VITALS: BP 130/64
[2019-08-06 05:13] LABS: HEMATOCRIT 25.7 % (42-54); MEAN CORPUSCULAR HEMOGLOBIN 29.4 pg (27.0-33.0); MEAN CORPUSCULAR HGB CONC 32.7 g/dL (32.0-36.0); MEAN CORPUSCULAR VOLUME 89.9 fL (79-99); RED BLOOD CELL COUNT(AUTO) 2.86 MIL/uL (4.50-6.20); WHITE BLOOD COUNT (AUTO) 9.3 K/uL (4.8-10.8)
[2019-08-06 05:30] LABS: CREATININE 0.8 mg/dL (0.5-1.5)
[2019-08-06] MEDS: LACTULOSE 20 GM/30 ML UDCUP PO PRN (06:03)
[2019-08-06 08:00] VITALS: BP 124/51
[2019-08-06] MEDS: DOCUSATE SODIUM 100 MG CAP PO SCH (09:14)
[2019-08-06] MEDS: FAMOTIDINE/PF 20 MG/2 ML VIAL IV SCH (09:14)
[2019-08-06] MEDS: MIDODRINE HCL 5 MG TABLET PO SCH ×3 (09:14→20:05)
[2019-08-06] MEDS: APIXABAN 2.5 MG TABLET PO SCH ×2 (09:14→20:04)
[2019-08-06] MEDS: DULOXETINE HCL 30 MG CAP PO SCH ×2 (09:14→20:05)
[2019-08-06] MEDS: CALCIUM CARBONATE 500 MG TABLET PO PRN (09:14)
[2019-08-06] MEDS: SODIUM CHLORIDE 0.9% 1000ML 1,000 ML IV SCH ×2 (09:16→21:42)
[2019-08-06] MEDS: OXYCODONE HCL 5 MG TAB PO PRN ×2 (09:16→21:31)
[2019-08-06 11:00] VITALS: BP 130/55
--- NOTE | 2019-08-06 12:16 | NUR ---
DC PLAN SPOKE TO VINOD FROM [facility] SAID JUST PENDING SOME SIGNATURES FROM DAUGHTER. ASKED TO FAX FACESHEET FOR INSURANCE INFO [phone]. SAID THEY CARE FOR PATIENT BUT NO IN HOUSE PT. WILL NEED TO SET UP HOME HEALTH. SPOKE TO NURSE HUNTER EXPLAINED CURRENT PLAN AND NEEDING DR. FUENTES TO GIVE HOME HEALTH ORDER AND PT RECOMMENDATIONS. PATIENT HAD LIME HIDE INSPECTOR PUMP STOPPED THIS MORNING. SWITCHING TO PO. DR. MELARA WANTED PATIENT TO GO TO [facility] EXPLAINED THAT IF IN SNF CAN NOT GET CHEMO OR CANCER TREATMENTS. AT [facility] HE WOULD BE ABLE TO SINCE ITS LIKE A HOME. SAID HE UNDERSTANDS AND IS OKAY WITH GOING TO [facility].
--- NOTE | 2019-08-06 14:35 | NUR ---
RD FOLLOW UP Upon visit, Pt reports poor appetite. RURAL ROUTE CARRIER reports Pt takes a couple of bites of food and goes to sleep, even when daughter comes to feed. ROBERTO spoke to Pt, Pt reports no appetite, no GI distress, no abdominal pain. Pt also reports large BM this AM. RD offered Ensure, Pt states willing to try, no chocolate. RD also updated food preferences;Pt prefers moist foods and states pudding is too thick. Recommend add Ensure BID Recommend consider appetite stimulant Food Preferences updated Addendum: 08/06/19 at [address] Amended: Links added.
[2019-08-06 16:00] VITALS: BP 124/49
[2019-08-06] MEDS: HYDROMORPHONE 1 MG/1 ML AMP IVP PRN ×2 (19:28→22:04)
[2019-08-06] MEDS: MIRTAZAPINE 15 MG TABLET PO SCH (20:05)
[2019-08-06 20:31] VITALS: BP 130/63
[2019-08-07 00:56] VITALS: BP 126/49
[2019-08-07] MEDS: HYDROMORPHONE 1 MG/1 ML AMP IVP PRN ×2 (00:56→22:01)
[2019-08-07] MEDS: ACETAMINOPHEN EXTRA STRENGTH 500 MG TABLET PO SCH ×3 (01:59→17:51)
[2019-08-07 06:02] LABS: BASOPHILS % (AUTO) 0.4 % (0.0-5.0); EOSINOPHILS % (AUTO) 1.6 % (0.0-8.0); MEAN CORPUSCULAR HEMOGLOBIN 28.7 pg (27.0-33.0); MEAN CORPUSCULAR HGB CONC 31.8 g/dL (32.0-36.0); MEAN CORPUSCULAR VOLUME 90.3 fL (79-99); MONOCYTES % (AUTO) 6.9 % (3.0-13.0); NEUTROPHILS % (AUTO) 80.6 % (40.0-77.0); PLATELET COUNT (AUTO) 237 K/uL (130-400); RED CELL DISTRIBUTION WIDTH 16.2 % (11.0-15.5); WHITE BLOOD COUNT (AUTO) 7.4 K/uL (4.8-10.8)
[2019-08-07 06:24] LABS: ALBUMIN 1.8 g/dL (3.5-5.0); BILIRUBIN,TOTAL 1.5 mg/dL (0.2-1.0); CREATININE 0.8 mg/dL (0.5-1.5); POTASSIUM 3.8 mmol/L (3.5-5.1); TOTAL PROTEIN, SERUM 4.7 g/dL (6.0-8.3)
[2019-08-07] MEDS: SODIUM CHLORIDE 0.9% 1000ML 1,000 ML IV SCH ×2 (07:35→17:51)
[2019-08-07 08:00] VITALS: BP 142/63
[2019-08-07] MEDS ORDERED: ACET-66 PO (08:36)
[2019-08-07] MEDS ORDERED: APIX2.5T PO (08:36)
[2019-08-07] MEDS ORDERED: OXYC5 PO (08:36)
[2019-08-07] MEDS: OXYCODONE HCL 5 MG TAB PO PRN ×2 (09:00→20:36)
[2019-08-07] MEDS: MIDODRINE HCL 5 MG TABLET PO SCH ×3 (09:00→20:20)
[2019-08-07] MEDS: CALCIUM CARBONATE 500 MG TABLET PO PRN (09:02)
[2019-08-07] MEDS: FAMOTIDINE/PF 20 MG/2 ML VIAL IV SCH (09:02)
[2019-08-07] MEDS: DULOXETINE HCL 30 MG CAP PO SCH ×2 (09:02→20:20)
[2019-08-07] MEDS: APIXABAN 2.5 MG TABLET PO SCH ×2 (09:02→20:20)
[2019-08-07] MEDS: DOCUSATE SODIUM 100 MG CAP PO SCH (09:04)
--- NOTE | 2019-08-07 10:47 | NUR ---
DC PLAN GOT ORDERS FOR HOME HEALTH FROM DR. FUENTES. SPOKE TO DAUGHTER LAURA TO CONFIRM SHE IS STILL PENDING TO SIGN PAPER WORK AT [facility]. SAID IS GOING TO TRY TO DO IT TODAY. GOT TELEPHONE RELEASE OF INFO FOR HOME HEALTH AND DME ANY IN NETWORK. OKAY TO START WITH DR. FUENTES RECOMMENDATIONS PENDING TO SEE IF INSURANCE ACCEPTED. PACKET SENT TO [facility] AND STEVEN GRAVES. Addendum: 08/07/19 at 1049 by JAVAN THOMAS RN CM Amended: Links added.
[2019-08-07 12:00] VITALS: BP 135/56
--- NOTE | 2019-08-07 13:20 | NUR ---
ELLEN PLAN [facility] ACCEPTED PATIENTNeli DREACHON SAID NO TO INSURANCE. FAXED PACKET TO [facility]. NASIR WILL CONTINUE TO FOLLOW. Addendum: 08/07/19 at 1321 by JAVAN THOMAS RN CM Amended: Links added.
[2019-08-07] MEDS ORDERED: ACETAMINOPHEN-CODEINE 300/30MG TAB PO PRN (15:00)
--- NOTE | 2019-08-07 15:16 | NUR ---
ELLEN JONAS CALLED [facility] SAID THEY HAD NOT RECEIVED. RE FAXED AND EMAILED. NASIR WILL CONTINUE TO FOLLOW. Addendum: 08/07/19 at 1516 by JAVAN THOMAS RN CM Amended: Links added.
[2019-08-07 16:00] VITALS: BP 164/80
[2019-08-07] MEDS: MIRTAZAPINE 15 MG TABLET PO SCH (20:20)
[2019-08-07 22:14] VITALS: BP 115/55
[2019-08-08 00:24] VITALS: BP 128/63
[2019-08-08] MEDS: HYDROMORPHONE 1 MG/1 ML AMP IVP PRN ×4 (00:26→21:57)
[2019-08-08] MEDS: ACETAMINOPHEN EXTRA STRENGTH 500 MG TABLET PO SCH ×3 (01:30→17:13)
[2019-08-08] MEDS: SODIUM CHLORIDE 0.9% 1000ML 1,000 ML IV SCH ×2 (03:54→13:46)
[2019-08-08 04:08] LABS: BASOPHILS % (AUTO) 0.3 % (0.0-5.0); EOSINOPHILS % (AUTO) 3.2 % (0.0-8.0); HEMATOCRIT 27.7 % (42-54); LYMPHOCYTES % (AUTO) 23.1 % (21.0-51.0); MEAN CORPUSCULAR HEMOGLOBIN 28.9 pg (27.0-33.0); MEAN CORPUSCULAR HGB CONC 31.8 g/dL (32.0-36.0); MEAN CORPUSCULAR VOLUME 91.1 fL (79-99); NEUTROPHILS % (AUTO) 60.7 % (40.0-77.0); PLATELET COUNT (AUTO) 243 K/uL (130-400); RED BLOOD CELL COUNT(AUTO) 3.04 MIL/uL (4.50-6.20); RED CELL DISTRIBUTION WIDTH 16.1 % (11.0-15.5); WHITE BLOOD COUNT (AUTO) 6.5 K/uL (4.8-10.8)
[2019-08-08 04:29] LABS: CREATININE 0.8 mg/dL (0.5-1.5); POTASSIUM 3.8 mmol/L (3.5-5.1)
[2019-08-08 05:22] VITALS: BP 132/65
[2019-08-08] MEDS: OXYCODONE HCL 5 MG TAB PO PRN ×2 (06:49→21:03)
[2019-08-08 08:00] VITALS: BP 118/64
[2019-08-08] MEDS: FAMOTIDINE/PF 20 MG/2 ML VIAL IV SCH (09:10)
[2019-08-08] MEDS: DULOXETINE HCL 30 MG CAP PO SCH ×3 (09:10→20:56)
[2019-08-08] MEDS: APIXABAN 2.5 MG TABLET PO SCH ×2 (09:10→20:55)
[2019-08-08] MEDS: DOCUSATE SODIUM 100 MG CAP PO SCH (09:11)
[2019-08-08] MEDS: MIDODRINE HCL 5 MG TABLET PO SCH ×3 (09:11→20:56)
[2019-08-08] MEDS: CALCIUM CARBONATE 500 MG TABLET PO PRN (09:22)
--- NOTE | 2019-08-08 11:18 | NUR ---
ELLEN JONAS RECEIVED ORDER FORMS FOR DME FROM [facility]. CALLED DR. FUENTES OFFICE SAID HE IS IN HOUSE. LET THEM KNOW I AM FAXING FORMS FOR MD TO SIGN. Addendum: 08/08/19 at 1119 by JAVAN THOMAS RN CM Amended: Links added.
[2019-08-08 12:00] VITALS: BP 117/57
--- NOTE | 2019-08-08 13:42 | NUR ---
[facility] REPORT CALLED TO SOWMYA GLORIA LVN FOR P.T., O.T. AND DAILY WOUND CARE; SOWMYA VERBALIZED UNDERSTANDING. INFORMED SOWMYA STILL PENDING TO BE DISCHARGED DUE TO PENDING DME. Addendum: 08/08/19 at 1449 by DALE CASTRO RN CORRECT TIME 1445
--- NOTE | 2019-08-08 14:04 | NUR ---
DC PLAN GOT FORMS FROM DR. FUENTES. SENT TO [facility]. CALLED APOLONIA ARRINGTON AT [place] CALL BACK AFTER 230. CALLED MARICARMEN ACUNA. SAID ROOM IS READY FOR EQUIPMENT. [facility] ALREADY CALLED HER SAID READY TO START ONCE PATIENT IS ADMITTED. SAID SHE ALREADY MADE ARRANGMENTS FOR TRANSPORT JUST NEED TIME FOR PILLOWCASE TURNER. Addendum: 08/08/19 at 1407 by JAVAN THOMAS RN CM Amended: Links added.
--- NOTE | 2019-08-08 15:04 | NUR ---
ELLEN JONAS SPOKE TO [facility] SAID ACCEPTED AND WILL DELIVERED TOMORROW. NO REACTOR SERVICE OPERATOR TODAY. NO ETA ON DELIVERY TIME. SAID TO CALL TOMORROW. LET NURSE KNOW. Addendum: 08/08/19 at 1505 by JAVAN THOMAS RN CM Amended: Links added.
[2019-08-08 16:00] VITALS: BP 112/59
[2019-08-08 20:20] VITALS: BP 113/55
[2019-08-08] MEDS: MIRTAZAPINE 15 MG TABLET PO SCH (20:56)
[2019-08-09] MEDS: SODIUM CHLORIDE 0.9% 1000ML 1,000 ML IV SCH (00:02)
[2019-08-09] MEDS: HYDROMORPHONE 1 MG/1 ML AMP IVP PRN ×3 (00:04→04:40)
[2019-08-09 00:20] VITALS: BP 116/53
[2019-08-09] MEDS: ACETAMINOPHEN EXTRA STRENGTH 500 MG TABLET PO SCH ×2 (01:33→09:58)
[2019-08-09] MEDS: OXYCODONE HCL 5 MG TAB PO PRN (03:09)
[2019-08-09 04:24] VITALS: BP 123/55
[2019-08-09 06:13] LABS: BASOPHILS % (AUTO) 0.4 % (0.0-5.0); EOSINOPHILS % (AUTO) 3.2 % (0.0-8.0); HEMATOCRIT 27.2 % (42-54); LYMPHOCYTES % (AUTO) 21.5 % (21.0-51.0); MEAN CORPUSCULAR HEMOGLOBIN 28.9 pg (27.0-33.0); MEAN CORPUSCULAR VOLUME 90.4 fL (79-99); MONOCYTES % (AUTO) 8.6 % (3.0-13.0); NEUTROPHILS % (AUTO) 64.9 % (40.0-77.0); PLATELET COUNT (AUTO) 260 K/uL (130-400); RED BLOOD CELL COUNT(AUTO) 3.01 MIL/uL (4.50-6.20); RED CELL DISTRIBUTION WIDTH 15.9 % (11.0-15.5); WHITE BLOOD COUNT (AUTO) 7.3 K/uL (4.8-10.8)
[2019-08-09 06:39] LABS: CREATININE 0.7 mg/dL (0.5-1.5); POTASSIUM 3.8 mmol/L (3.5-5.1)
[2019-08-09 08:22] VITALS: BP 119/59
[2019-08-09] MEDS: DOCUSATE SODIUM 100 MG CAP PO SCH (09:57)
[2019-08-09] MEDS: MIDODRINE HCL 5 MG TABLET PO SCH (09:57)
[2019-08-09] MEDS: FAMOTIDINE/PF 20 MG/2 ML VIAL IV SCH (09:57)
[2019-08-09] MEDS: APIXABAN 2.5 MG TABLET PO SCH (09:57)
--- NOTE | 2019-08-09 11:10 | NUR ---
ELLEN JONAS SPOKE TO VINOD AT [facility]. SAID DME CALLED SAID SHOULD BE THERE IN THE AFTERNOON. ASKED HER TO CALL CHARGE NURSE CATHY [phone] ONCE EQUIPMENT DELIVERED SO THAT PATIENT CAN BE DISCHARGE. VERBALIZED UNDERSTANDING. Addendum: 08/09/19 at 1111 by JAVAN THOMAS RN CM Amended: Links added.
[2019-08-09 12:00] VITALS: BP 122/52
--- NOTE | 2019-08-09 16:07 | NUR ---
TRANSPORT FROM [facility] IS HERE BUT ONLY HAS A WHEELCHAIR. I EXPLAINED TO HIM THAT PT NEEDED TO BE TRANSPORTED VIA STRETCHER BECAUSE OF HIS DIAGNOSIS. MAL CALLED. REPORT GIVEN TO MAL REGARDING RX, F/U APPOINTMENTS WITH DR CANCINO, DR FUENTES, DR WINN AND DR Yomi JONES. DRESSING CHANGE INSTRUCTIONS AND WBAT STATUS. ALL QUESTIONS ANSWERED ACCORDINGLY, EMS CALLED. WAITING TO HEATER INSTALLER PATIENT.
--- NOTE | 2019-08-09 17:58 | NUR ---
EMS CALLED AGAIN AND ASKED TO EXPEDITE THE TRANSFER BECAUSE [facility] DOES NOT ACCEPT PATIENT'S AFTER 1899. EMS AWARE. CALLED LAURA MENDOZA ALSO TO LET HER KNOW OF THE DELAY.
== END 2019-08-09 18:30 | disposition home health service (06) | DRG 470 ==
LOC: EDH 12:04 → EDHIP 16:56 → 3DH 21:42 → 3BH 08-04 06:30 → 3DH 08-04 07:31
PROVIDERS: ADMIT Hospitalist; ATTEND Hospitalist
PROC: 0QB70ZX Excision of Left Upper Femur, Open Approach, Diagnostic (ICD-10-PCS; 2019-07-26)
PROC: 04LL3ZZ Occlusion of Left Femoral Artery, Percutaneous Approach (ICD-10-PCS; principal; 2019-07-31)
PROC: B41G1ZZ Fluoroscopy of Left Lower Extremity Arteries using Low Osmolar Contrast (ICD-10-PCS; 2019-07-31)
PROC: B41F1ZZ Fluoroscopy of Right Lower Extremity Arteries using Low Osmolar Contrast (ICD-10-PCS; 2019-07-31)
PROC: 0SRB0J9 Replacement of Left Hip Joint with Synthetic Substitute, Cemented, Open Approach (ICD-10-PCS; 2019-08-02 12:00)
PROC: 0QB70ZZ Excision of Left Upper Femur, Open Approach (ICD-10-PCS; 2019-08-02 12:00)
DX: M84.452A Pathological fracture, left femur, initial encounter for fracture (principal); C79.51 Secondary malignant neoplasm of bone; N17.9 Acute kidney failure, unspecified; C64.2 Malignant neoplasm of left kidney, except renal pelvis; R45.851 Suicidal ideations; D62 Acute posthemorrhagic anemia; N18.9 Chronic kidney disease, unspecified; I12.9 Hypertensive chronic kidney disease with stage 1 through stage 4 chronic kidney disease, or unspecified chronic kidney disease; E87.5 Hyperkalemia; D72.829 Elevated white blood cell count, unspecified; F32.9 Major depressive disorder, single episode, unspecified; K76.9 Liver disease, unspecified; R62.7 Adult failure to thrive; I95.9 Hypotension, unspecified; R53.81 Other malaise; R91.8 Other nonspecific abnormal finding of lung field; W05.0XXA Fall from non-moving wheelchair, initial encounter; Y93.89 Activity, other specified; Y92.89 Other specified places as the place of occurrence of the external cause; Y99.8 Other external cause status; Z68.38 Body mass index [BMI] 38.0-38.9, adult; Z90.49 Acquired absence of other specified parts of digestive tract; Z85.528 Personal history of other malignant neoplasm of kidney; Z87.311 Personal history of (healed) other pathological fracture; Z87.81 Personal history of (healed) traumatic fracture
CPT/HCPCS: 36247; 36415; 36430; 37243; 71045; 71250; 72170; 73501; 73503; 73700; 73701; 74176; 75710; 76770; 80048; 80053; 81001; 82533; 82550; 82570; 82948; 83540; 83550; 83735; 84100; 84145; 84156; 84484; 85014; 85018; 85025; 85027; 85610; 85651; 85730; 86140; 86850; 86900; 86901; 86922; 93005; 97039; A9579; C1760; C1769; C1887; C1894; G0378; J0330; J0690; J1100; J1170; J1644; J1650; J1756; J1940; J2001; J2060; J2175; J2250; J2310; J2370; J2405; J2430; J2704; J2710; J2795; J3010; J3490; J7030; J7050; P9016; P9034; P9045; Q0163; Q9967

== ENCOUNTER 2019-08-22 13:29 | Inpatient (IN) | payer MEDICARE ==
[~2019-08-22] VITALS: Ht 188 cm; Wt 99.8 kg
[~2019-08-22 13:29] MED LIST changes: +ACET-66 PO; +APIX2.5T PO; +LORA10TA60 PO; +OXYC5 PO
[2019-08-22] MEDS ORDERED: HYDROMORPHONE 1 MG/1 ML AMP ONE ×2 (14:29→17:30)
[2019-08-22] MEDS ORDERED: KETOROLAC TROMETHAMINE 15MG/ML ONE (14:29)
[2019-08-22 15:14] LABS: BASOPHILS % (AUTO) 0.6 % (0.0-5.0); EOSINOPHILS % (AUTO) 1.1 % (0.0-8.0); HEMATOCRIT 33.9 % (42-54); LYMPHOCYTES % (AUTO) 22.6 % (21.0-51.0); MEAN CORPUSCULAR HEMOGLOBIN 28.6 pg (27.0-33.0); MEAN CORPUSCULAR HGB CONC 31.6 g/dL (32.0-36.0); MEAN CORPUSCULAR VOLUME 90.6 fL (79-99); MONOCYTES % (AUTO) 9.5 % (3.0-13.0); NEUTROPHILS % (AUTO) 65.8 % (40.0-77.0); PLATELET COUNT (AUTO) 264 K/uL (130-400); RED BLOOD CELL COUNT(AUTO) 3.74 MIL/uL (4.50-6.20); RED CELL DISTRIBUTION WIDTH 15.5 % (11.0-15.5)
[2019-08-22] MEDS ORDERED: HYDROMORPHONE HCL 0.5 MG/0.5 ML ML ONE (15:16)
[2019-08-22] MEDS ORDERED: SODIUM CHLORIDE 0.9% 1000ML 1,000 ML IV ONE ×2 (15:16→17:19)
[2019-08-22 15:20] LABS: CREATININE 0.9 mg/dL (0.5-1.5); POTASSIUM 4.5 mmol/L (3.5-5.1)
[2019-08-22 15:25] LABS: ALBUMIN 2.5 g/dL (3.5-5.0); BILIRUBIN,TOTAL 0.7 mg/dL (0.2-1.0); TOTAL PROTEIN, SERUM 6.3 g/dL (6.0-8.3)
[2019-08-22] MEDS ORDERED: ACETAMINOPHEN 325 MG TAB PO PRN ×2 (16:30)
[2019-08-22] MEDS ORDERED: HYDRALAZINE HCL 20 MG/ML VIAL IV PRN (16:30)
[2019-08-22] MEDS ORDERED: MAG HYDROX/AL HYDROX/SIMETH ES 30 ML SUSP UDCUP PO PRN (16:30)
[2019-08-22] MEDS: FENTANYL 75 MCG/HR PATCH TD SCH (16:30)
[2019-08-22] MEDS ORDERED: ONDANSETRON HCL 4 MG/2 ML VIAL IV PRN (16:30)
[2019-08-22] MEDS ORDERED: LACTULOSE 20 GM/30 ML UDCUP PO PRN (16:30)
[2019-08-22] MEDS ORDERED: DIPHENHYDRAMINE HCL 25 MG CAPSULE PO PRN (16:30)
[2019-08-22] MEDS ORDERED: DiphenhydrAMINE HCL 50 MG/ML VIAL IV PRN (16:30)
[2019-08-22] MEDS ORDERED: HYDROMORPHONE 1 MG/1 ML AMP IV PRN (16:30)
[2019-08-22] MEDS ORDERED: GUAIFENESIN-DM 200/20 MG 10 ML PO PRN (16:30)
[2019-08-22] MEDS ORDERED: HYDROCODONE/ACETAMINOPHEN 5/325 MG TAB PO PRN (16:30)
[2019-08-22] MEDS ORDERED: NITROGLYCERIN 0.4 MG SL TAB SL PRN (16:30)
[2019-08-22] MEDS ORDERED: FENTANYL 75 MCG/HR PATCH TD ONE (17:19)
[2019-08-22] MEDS: IPRATROPIUM 0.5 MG/2.5 ML INH IH SCH ×2 (19:19→23:55)
[2019-08-22] MEDS: SODIUM CHLORIDE 0.9% 1000ML 1,000 ML IV SCH (20:45)
[2019-08-22] MEDS: FAMOTIDINE 20MG TAB 20 MG TAB PO SCH (20:50)
[2019-08-22 21:37] VITALS: BP 132/59
[2019-08-23] VITALS (7 sets, daily range): BP systolic 96–136; BP diastolic 48–73
[2019-08-23 00:41] LABS: APPEARANCE,URINE Cloudy (CLEAR); BILIRUBIN,URINE Small (NEGATIVE); COLOR,URINE Dark Yellow (YELLOW); GLUCOSE, URINE (UA) Negative (NEGATIVE); KETONES,URINE Negative (NEGATIVE); LEUKOCYTE ESTERASE ,URINE Large (NEGATIVE); NITRATE,URINE Negative (NEGATIVE); OCCULT BLOOD,URINE Large (NEGATIVE); PROTEIN,URINE POS 1+ mg/dL (NEGATIVE)
[2019-08-23 00:51] LABS: BACTERIA,URINE Moderate /HPF (None Seen); SQUAMOUS EPITHELIAL CELL,UR Rare /HPF (0-2); WBC,URINE 26-50 /HPF (0-1)
[2019-08-23] MEDS: SODIUM CHLORIDE 0.9% 1000ML 1,000 ML IV SCH ×4 (03:53→22:01)
[2019-08-23 04:28] LABS: BASOPHILS % (AUTO) 0.8 % (0.0-5.0); EOSINOPHILS % (AUTO) 2.3 % (0.0-8.0); HEMATOCRIT 31.2 % (42-54); LYMPHOCYTES % (AUTO) 36.8 % (21.0-51.0); MEAN CORPUSCULAR HEMOGLOBIN 28.1 pg (27.0-33.0); MEAN CORPUSCULAR HGB CONC 30.8 g/dL (32.0-36.0); MEAN CORPUSCULAR VOLUME 91.2 fL (79-99); MONOCYTES % (AUTO) 10.5 % (3.0-13.0); NEUTROPHILS % (AUTO) 49.1 % (40.0-77.0); PLATELET COUNT (AUTO) 244 K/uL (130-400); RED BLOOD CELL COUNT(AUTO) 3.42 MIL/uL (4.50-6.20); RED CELL DISTRIBUTION WIDTH 15.6 % (11.0-15.5); WHITE BLOOD COUNT (AUTO) 6.2 K/uL (4.8-10.8)
[2019-08-23 04:50] LABS: CREATININE 0.9 mg/dL (0.5-1.5); POTASSIUM 4.4 mmol/L (3.5-5.1)
[2019-08-23] MEDS: IPRATROPIUM 0.5 MG/2.5 ML INH IH SCH ×4 (06:49→23:46)
[2019-08-23] MEDS ORDERED: HYDROMORPHONE 1 MG/1 ML AMP IVP PRN (08:45)
[2019-08-23] MEDS ORDERED: OXYCODONE HCL 5 MG TAB PO PRN (08:45)
[2019-08-23] MEDS: APIXABAN 2.5 MG TABLET PO SCH (09:00)
[2019-08-23] MEDS: LEVOFLOXACIN 750 MG/D5W 150 ML 150 ML IV SCH (09:38)
[2019-08-23] MEDS: FAMOTIDINE 20MG TAB 20 MG TAB PO SCH ×2 (09:45→22:00)
[2019-08-23] MEDS: ENOXAPARIN SODIUM 40 MG/0.4 ML SYRINGE SQ SCH (09:46)
[2019-08-23] MEDS: LORATADINE 10 MG TABLET PO SCH (09:46)
[2019-08-23] MEDS: LISINOPRIL 20 MG TABLET PO SCH ×2 (09:46→22:00)
[2019-08-23] MEDS ORDERED: MORPHINE SULFATE 15 MG TABLET.SA PO ONE (11:45)
[2019-08-23] MEDS: MORPHINE SULFATE 15 MG TABLET.SA PO SCH (11:48)
--- NOTE | 2019-08-23 11:52 | NUR ---
DAUGHTER CALLED DAUGHTER FOR UPDATE NO ANSWER.
[2019-08-23] MEDS ORDERED: LACTULOSE 20 GM/30 ML UDCUP PO PRN (15:45)
--- NOTE | 2019-08-23 17:12 | NUR ---
SPOKE TO PATIENT FOR DC PLANNING. PATIENT CURRENTLY LIVING IN [facility]- HAS A HOME HEALTH AGENCY - [facility] THAT PROVIDE PT. HAS A WINTER HOME- EXPECTS TO RETURN TO HIS HOME WHEN TREATMENT IS COMPLETE. [facility] NO ONE TELLS HIM ANYTHING ABOUT HIS CONDITION, HAD CANCER IN HIP, KIDNEY, BACK. HAS TREMENDOUS PAIN ABOUT 2 HOURS OF SIX STATED HE HAD NO IDEA WHAT WHAT GOING MANAGER OF TRANSPORTATION TO LAURA, SHE STATES THAT PT NEEDS TO START HIS TREATMENT SOON POSSIBLE BECAUSE SHE WAS NEVER TOLD BEFORE THAT HE WAS SO SICK, THAT SHE WANTS DR. CAHPA TO SEE HIM ON THIS ADMISSION, SHE WANTS AN APPOINTMENT SOON POSSIBLE CALL TO DR CAMPOS, DISCUSSED CASE; ORDER REC, CONSULT AND APPOINTMENT. WILL FOLLOW. EXPECT DC MONDAY IF PAIN CONTROLLED Addendum: 08/23/19 at 1722 by DESHAWN GROSSMAN RN Amended: Links added.
[2019-08-24] MEDS ORDERED: MORPHINE SULFATE 15 MG TABLET.SA PO ONE ×3 (00:26→20:06)
[2019-08-24] MEDS: MORPHINE SULFATE 15 MG TABLET.SA PO SCH ×3 (00:30→20:45)
[2019-08-24 03:49] VITALS: BP 119/60
[2019-08-24 05:28] LABS: BASOPHILS % (AUTO) 0.6 % (0.0-5.0); EOSINOPHILS % (AUTO) 1.7 % (0.0-8.0); HEMATOCRIT 30.1 % (42-54); LYMPHOCYTES % (AUTO) 33.2 % (21.0-51.0); MEAN CORPUSCULAR HEMOGLOBIN 28.8 pg (27.0-33.0); MEAN CORPUSCULAR HGB CONC 31.2 g/dL (32.0-36.0); MEAN CORPUSCULAR VOLUME 92.3 fL (79-99); MONOCYTES % (AUTO) 10.6 % (3.0-13.0); NEUTROPHILS % (AUTO) 53.4 % (40.0-77.0); PLATELET COUNT (AUTO) 252 K/uL (130-400); RED BLOOD CELL COUNT(AUTO) 3.26 MIL/uL (4.50-6.20); RED CELL DISTRIBUTION WIDTH 15.6 % (11.0-15.5); WHITE BLOOD COUNT (AUTO) 6.3 K/uL (4.8-10.8)
[2019-08-24 05:44] LABS: CREATININE 0.9 mg/dL (0.5-1.5); POTASSIUM 4.4 mmol/L (3.5-5.1)
[2019-08-24] MEDS: IPRATROPIUM 0.5 MG/2.5 ML INH IH SCH ×3 (06:25→18:25)
[2019-08-24] MEDS: LIDOCAINE 5% TOPICAL PATCH TP SCH (07:58)
[2019-08-24] MEDS: LEVOFLOXACIN 750 MG/D5W 150 ML 150 ML IV SCH (08:00)
[2019-08-24] MEDS: FAMOTIDINE 20MG TAB 20 MG TAB PO SCH ×2 (08:04→20:38)
[2019-08-24 08:05] VITALS: BP 103/55
[2019-08-24] MEDS: LORATADINE 10 MG TABLET PO SCH (08:07)
[2019-08-24] MEDS: ENOXAPARIN SODIUM 40 MG/0.4 ML SYRINGE SQ SCH (10:07)
[2019-08-24 12:02] VITALS: BP 99/49
[2019-08-24] MEDS: OXYCODONE HCL 5 MG TAB PO PRN (12:19)
[2019-08-24 15:50] VITALS: BP 98/52
[2019-08-24] MEDS: SODIUM CHLORIDE 0.9% 1000ML 1,000 ML IV SCH (18:22)
[2019-08-24 19:54] VITALS: BP 102/50
[2019-08-24 23:21] VITALS: BP 114/55
[2019-08-25] MEDS: OXYCODONE HCL 5 MG TAB PO PRN ×2 (00:40→10:25)
[2019-08-25 03:47] VITALS: BP 112/54
[2019-08-25] MEDS: SODIUM CHLORIDE 0.9% 1000ML 1,000 ML IV SCH (04:20)
[2019-08-25 05:44] LABS: BASOPHILS % (AUTO) 0.7 % (0.0-5.0); EOSINOPHILS % (AUTO) 2.4 % (0.0-8.0); LYMPHOCYTES % (AUTO) 40.2 % (21.0-51.0); MEAN CORPUSCULAR HEMOGLOBIN 28.3 pg (27.0-33.0); MEAN CORPUSCULAR HGB CONC 30.7 g/dL (32.0-36.0); MEAN CORPUSCULAR VOLUME 92.3 fL (79-99); MONOCYTES % (AUTO) 11.5 % (3.0-13.0); NEUTROPHILS % (AUTO) 44.8 % (40.0-77.0); PLATELET COUNT (AUTO) 232 K/uL (130-400); RED BLOOD CELL COUNT(AUTO) 3.25 MIL/uL (4.50-6.20); RED CELL DISTRIBUTION WIDTH 15.5 % (11.0-15.5); WHITE BLOOD COUNT (AUTO) 5.5 K/uL (4.8-10.8)
[2019-08-25 05:59] LABS: POTASSIUM 4.1 mmol/L (3.5-5.1)
[2019-08-25] MEDS ORDERED: IPRATROPIUM 0.5 MG/2.5 ML INH IH ONE ×2 (06:05→11:03)
[2019-08-25] MEDS: IPRATROPIUM 0.5 MG/2.5 ML INH IH SCH ×2 (06:15)
[2019-08-25] MEDS ORDERED: MORPHINE SULFATE 15 MG TABLET.SA PO ONE ×2 (08:22→20:40)
[2019-08-25] MEDS: LORATADINE 10 MG TABLET PO SCH (08:24)
[2019-08-25] MEDS: MORPHINE SULFATE 15 MG TABLET.SA PO SCH ×2 (08:25→20:53)
[2019-08-25] MEDS: FAMOTIDINE 20MG TAB 20 MG TAB PO SCH ×2 (08:25→20:31)
[2019-08-25] MEDS: LEVOFLOXACIN 750 MG/D5W 150 ML 150 ML IV SCH (08:26)
[2019-08-25] MEDS: LIDOCAINE 5% TOPICAL PATCH TP SCH (08:26)
[2019-08-25 08:53] VITALS: BP 113/57
[2019-08-25] MEDS ORDERED: LISINOPRIL 10 MG TABLET PO SCH (09:00)
[2019-08-25] MEDS: LACTULOSE 20 GM/30 ML UDCUP PO SCH ×3 (09:50→20:31)
--- NOTE | 2019-08-25 10:05 | NUR ---
DR. ALFREDO FUENTES CAME TO SEE PT AT BEDSIDE, REMOVED LETTY AND WILL F/U IN 3 WEEKS.
--- NOTE | 2019-08-25 10:14 | NUR ---
DR PALOMARES COVERING FOR BARBARA, WILL COME AND SEE PATIENT TODAY.
[2019-08-25] MEDS ORDERED: IPRATROPIUM 0.5 MG/2.5 ML INH IH PRN (11:45)
[2019-08-25 12:38] VITALS: BP 106/53
[2019-08-25] MEDS ORDERED: MORPHINE SULFATE 15 MG TABLET.SA PO PRN (12:45)
[2019-08-25] MEDS: METHYLPREDNISOLONE SOD SUCC 40MG/ML 1ML IVP SCH ×2 (12:51→20:32)
[2019-08-25 16:08] VITALS: BP 112/56
[2019-08-25] MEDS ORDERED: FENTANYL 75 MCG/HR PATCH TD ONE (16:20)
[2019-08-25] MEDS: FENTANYL 75 MCG/HR PATCH TD SCH (16:26)
[2019-08-25] MEDS: LUBIPROSTONE 24 MCG CAP PO SCH (18:46)
[2019-08-25 20:00] VITALS: BP 101/49
[2019-08-25] MEDS: APIXABAN 2.5 MG TABLET PO SCH ×2 (20:31→21:00)
[2019-08-26] VITALS (7 sets, daily range): BP systolic 102–118; BP diastolic 42–61
[2019-08-26] MEDS: METHYLPREDNISOLONE SOD SUCC 40MG/ML 1ML IVP SCH ×3 (05:41→20:46)
[2019-08-26] MEDS: LACTULOSE 20 GM/30 ML UDCUP PO SCH ×4 (09:00→20:49)
[2019-08-26] MEDS ORDERED: MORPHINE SULFATE 15 MG TABLET.SA PO ONE (09:11)
[2019-08-26] MEDS: LIDOCAINE 5% TOPICAL PATCH TP SCH (09:13)
[2019-08-26] MEDS: LEVOFLOXACIN 750 MG/D5W 150 ML 150 ML IV SCH (09:13)
[2019-08-26] MEDS: APIXABAN 2.5 MG TABLET PO SCH ×2 (09:15→20:46)
[2019-08-26] MEDS: MORPHINE SULFATE 15 MG TABLET.SA PO SCH (09:15)
[2019-08-26] MEDS: FAMOTIDINE 20MG TAB 20 MG TAB PO SCH ×2 (09:15→20:46)
[2019-08-26] MEDS: LORATADINE 10 MG TABLET PO SCH (09:16)
[2019-08-26] MEDS: LUBIPROSTONE 24 MCG CAP PO SCH ×2 (09:16→16:58)
[2019-08-26] MEDS: MORPHINE SULFATE 15 MG TABLET.SA PO PRN ×2 (13:59→16:58)
--- NOTE | 2019-08-26 14:00 | NUR ---
DISCUSSION WITH DR. CHAPA FOR POC PLAN TO CONTROL PAIN SO HE CAN FOLLOW UP WITH OFFICE TO START RADIATION. NO NEED FOR NEUROSURGEY CONSULT- METS TO MULTIPLE BONE SITES DISCUSSED WITH NURSE RICKY- SHE CONFIRMED SHE RECD MED CHANGE ORDERS AND INITIATED Addendum: 08/27/19 at 0830 by DESHAWN GROSSMAN RN CM Amended: Links added.
[2019-08-26] MEDS ORDERED: MORPHINE SULFATE IR 15 MG TAB 15 MG TABLET PO PRN (17:30)
[2019-08-26] MEDS: SODIUM CHLORIDE 0.9% 1000ML 1,000 ML IV SCH (20:47)
[2019-08-27 04:00] VITALS: BP 114/60
[2019-08-27 05:43] LABS: BASOPHILS % (AUTO) 0.1 % (0.0-5.0); HEMATOCRIT 30.2 % (42-54); LYMPHOCYTES % (AUTO) 13.6 % (21.0-51.0); MEAN CORPUSCULAR HGB CONC 30.8 g/dL (32.0-36.0); MONOCYTES % (AUTO) 8.2 % (3.0-13.0); NEUTROPHILS % (AUTO) 77.6 % (40.0-77.0); PLATELET COUNT (AUTO) 232 K/uL (130-400); RED BLOOD CELL COUNT(AUTO) 3.32 MIL/uL (4.50-6.20); RED CELL DISTRIBUTION WIDTH 15.1 % (11.0-15.5); WHITE BLOOD COUNT (AUTO) 7.5 K/uL (4.8-10.8)
[2019-08-27] MEDS: SODIUM CHLORIDE 0.9% 1000ML 1,000 ML IV SCH ×2 (05:45→16:20)
[2019-08-27] MEDS: METHYLPREDNISOLONE SOD SUCC 40MG/ML 1ML IVP SCH ×3 (05:50→21:03)
[2019-08-27 05:54] LABS: CREATININE 0.8 mg/dL (0.5-1.5); POTASSIUM 4.9 mmol/L (3.5-5.1)
[2019-08-27 07:26] VITALS: BP 113/53
[2019-08-27] MEDS: LEVOFLOXACIN 750 MG/D5W 150 ML 150 ML IV SCH (08:24)
[2019-08-27] MEDS: LIDOCAINE 5% TOPICAL PATCH TP SCH (08:24)
[2019-08-27] MEDS: LACTULOSE 20 GM/30 ML UDCUP PO SCH ×4 (08:25→21:02)
[2019-08-27] MEDS: APIXABAN 2.5 MG TABLET PO SCH ×2 (08:25→21:03)
[2019-08-27] MEDS: FAMOTIDINE 20MG TAB 20 MG TAB PO SCH ×2 (08:25→21:03)
[2019-08-27] MEDS: LUBIPROSTONE 24 MCG CAP PO SCH ×2 (08:25→17:32)
[2019-08-27] MEDS: LORATADINE 10 MG TABLET PO SCH (08:25)
[2019-08-27] MEDS: MORPHINE SULFATE IR 15 MG TAB 15 MG TABLET PO PRN ×4 (08:26→21:11)
--- NOTE | 2019-08-27 08:30 | NUR ---
KUSHO EXPECTED TO BE BACK TO [facility] WITH THEIR WHEELCHAIR VAN TRANSPORT- (NOT EMS) 'S STATE THE GOAL OF THIS ADMISSION IS TO CONTROL PAIN WELL ENOUGH TO BE ABLE TO TRANSPORT FOR CANCER TREATMENT. CM TO FOLLOW Addendum: 08/27/19 at 0834 by DESHAWN GROSSMAN RN CM Amended: Links added.
[2019-08-27 10:43] VITALS: BP 109/57
[2019-08-27 15:47] VITALS: BP 99/58
[2019-08-27 20:05] VITALS: BP 115/58
--- NOTE | 2019-08-27 21:00 | NUR ---
MEDS SHIFT ASSESSMENT DONE, PLEASE REFER TO CHART. PT CLAIMS OF PAINS ON HIS BACK. DUE MEDS ADMINISTERED, MS CONTIN PO GIVEN FOR PAIN. PT TOLERATED MEDS WELL. KEPT COMFORTABLE IN BED. WILL RE-ASSESS PT. CALL LIGHT WITHIN REACH. Addendum: 08/28/19 at 0226 by SHERIDAN BOX RN RN Amended: Links added.
[2019-08-28] VITALS: BP 102/55
--- NOTE | 2019-08-28 | NUR ---
PAIN PT CALLS FOR FOR PAIN MEDICATION. MS CONTIN ADMINISTERED. RE-POSITIONED COMFORTABLY IN BED. WILL RE-ASSESS PT. Addendum: 08/28/19 at 0230 by SHERIDAN BOX RN RN Amended: Links added.
[2019-08-28] MEDS: MORPHINE SULFATE IR 15 MG TAB 15 MG TABLET PO PRN ×4 (00:05→16:07)
--- NOTE | 2019-08-28 02:00 | NUR ---
ROUNDS PT RESTING WELL, FAIRLY ASLEEP. NO DISTRESS NOTED. KEPT UNDISTURBED FOR NOW. WILL MONITOR PT. CALL LIGHT WITHIN REACH.
[2019-08-28] MEDS ORDERED: LACTULOSE 20 GM/30 ML UDCUP PO PRN (03:45)
[2019-08-28 04:00] VITALS: BP 106/53
[2019-08-28] MEDS: METHYLPREDNISOLONE SOD SUCC 40MG/ML 1ML IVP SCH ×2 (04:48→13:58)
--- NOTE | 2019-08-28 04:50 | NUR ---
MEDS PT IS ALREADY AWAKE, WATCHING TV. DENIES ANY CONCERNS AT THIS TIME. NO DISTRESS NOTED. DUE MEDS ADMINISTERED. FOR MORE CARE AND MANAGEMENT.
[2019-08-28 06:07] LABS: CARBON DIOXIDE 24 mmol/L (21-32); CHLORIDE 101 mmol/L (101-111); CREATININE 0.9 mg/dL (0.5-1.5); GLOMERULAR FILTR. RATE CALC 88 mL/min (>60); GLUCOSE,RANDOM 152 mg/dL (70-105); POTASSIUM 4.8 mmol/L (3.5-5.1); SODIUM SERUM 133 mmol/L (136-145); UREA NITROGEN, BLOOD 20 mg/dL (7-18)
[2019-08-28 08:25] VITALS: BP 95/45
[2019-08-28] MEDS: LUBIPROSTONE 24 MCG CAP PO SCH ×2 (08:51→16:07)
[2019-08-28] MEDS: APIXABAN 2.5 MG TABLET PO SCH (08:51)
[2019-08-28] MEDS: LIDOCAINE 5% TOPICAL PATCH TP SCH (08:52)
[2019-08-28] MEDS: LEVOFLOXACIN 750 MG/D5W 150 ML 150 ML IV SCH (08:52)
[2019-08-28] MEDS: LORATADINE 10 MG TABLET PO SCH (08:52)
[2019-08-28] MEDS: FAMOTIDINE 20MG TAB 20 MG TAB PO SCH (08:52)
[2019-08-28] MEDS ORDERED: LEVO500T2 PO (09:28)
[2019-08-28 10:29] VITALS: BP 107/52
[2019-08-28] MEDS ORDERED: SENN8.6T32 PO (11:59)
[2019-08-28] MEDS ORDERED: POLY17PO4 PO (11:59)
--- NOTE | 2019-08-28 12:15 | NUR ---
LLE SWELLING CALLED DR. FUENTES TO REPORT LEFT CALF HAS PITTING EDEMA +2. DORSALIS AND POPLITEAL PULSES STRONG AND PALPABLE, WARM TO THE TOUCH. PATIENT STATES LEFT LEG "FEELS TIGHT AND CAN'T MOVE IT EASIER." DR. FUENTES REPLIED TO MAKE SURE PATIENT RECEIVING ANTICOAGULATION AND ELEVATE LEFT LEG WHEN RESTING.
--- NOTE | 2019-08-28 14:00 | NUR ---
DR. JULITA LEAL HERE TO SEE PATIENT. SAYS OKAY FOR PATIENT TO BE DISCHARGED. DR. CANCINO STATES HE CALLED IN RX FOR FENTANYL PATCH AND MORPHINE PO TO PATIENTS PHARMACY.
--- NOTE | 2019-08-28 15:55 | NUR ---
DR. ELLISON OKAY TO DISCHARGE PATIENT IF IMAGING STUDY NEGATIVE FOR DVT. DR. ELLISON ALSO TOLD ME TO PLACE NEW FENTANYL PATCH PRIOR TO PATIENT DISCHARGE TODAY SINCE FENTANYL PATCH WAS SCHEDULED TO BE CHANGED TODAY.
[2019-08-28 16:08] VITALS: BP 106/59
[2019-08-28] MEDS: FENTANYL 75 MCG/HR PATCH TD SCH (16:12)
--- NOTE | 2019-08-28 16:30 | NUR ---
MULTIPLE CALLS TO [facility] RE: PATIENT TRANSPORT- NO ANSWER TO VOICES MAILS FINALLY CALLED DAUGHTER LAURA AND GOT ALTERNATE NUMBER TO CALL; CONTACTED STAFF, PATIENT TO COME BY PRIVATE CAR YADI AWARE Addendum: 08/28/19 at 1727 by DESHAWN GROSSMAN RN CM Amended: Links added.
== END 2019-08-28 17:00 | disposition home health service (06) | DRG 948 ==
LOC: EDH 13:29 → EDHIP 16:20 → 3AH 17:34
PROVIDERS: ADMIT Family Medicine; ATTEND Family Medicine
DX: G89.3 Neoplasm related pain (acute) (chronic) (principal); C79.51 Secondary malignant neoplasm of bone; C64.2 Malignant neoplasm of left kidney, except renal pelvis; N39.0 Urinary tract infection, site not specified; E87.1 Hypo-osmolality and hyponatremia; E44.0 Moderate protein-calorie malnutrition; Z96.642 Presence of left artificial hip joint; I10 Essential (primary) hypertension; G30.9 Alzheimer's disease, unspecified; M54.5 Low back pain; D64.9 Anemia, unspecified; E66.9 Obesity, unspecified; F02.80 Dementia in other diseases classified elsewhere, unspecified severity, without behavioral disturbance, psychotic disturbance, mood disturbance, and anxiety; G89.29 Other chronic pain; M54.2 Cervicalgia; M75.01 Adhesive capsulitis of right shoulder; R62.7 Adult failure to thrive; Z80.1 Family history of malignant neoplasm of trachea, bronchus and lung; Z98.1 Arthrodesis status; Z68.28 Body mass index [BMI] 28.0-28.9, adult; Z90.49 Acquired absence of other specified parts of digestive tract
CPT/HCPCS: 36415; 72040; 72070; 72100; 72128; 72148; 80048; 80053; 81001; 84145; 85025; 87077; 87088; 87186; 93970; 94640; 94664; 97039; A6250; G0378; J0360; J1170; J1650; J1885; J1956; J2920; J7030